=== PATIENT | female | born 1995 | race Caucasian/White ===

== ENCOUNTER → 2019-03-16 14:20 | Observation (INO) ==
[2019-03-16 12:44] LABS: Basophils # 0.1 K/mcL (0.0-0.2); Basophils % 0.6 %; Eosinophils # 0.1 K/mcL (0.0-0.6); Eosinophils % 0.5 %; Hematocrit 35.4 % (35.3-44.9); Hemoglobin 12.5 g/dL (11.5-15.4); Immature Granulocytes % 4.3 % (0-4); Lymphocytes # 1.6 K/mcL (0.6-4.6); Lymphocytes % 12.5 %; Mean Corpuscular HGB Conc 35.3 g/dL (31.6-35.5); Mean Corpuscular Hemoglobin 30.8 pg (28.0-33.3); Mean Corpuscular Volume 87.2 fL (83.0-100.0); Mean Platelet Volume 10.7 fL (9.4-12.4); Monocytes # 0.8 K/mcL (0.0-1.3); Monocytes % 6.4 %; Neutrophils # 9.4 K/mcL (1.6-8.9); Platelet Count 233 K/mcL (140-400); Red Blood Count 4.06 M/mcL (3.82-4.97); Red Cell Distribution Width 12.1 % (11.5-14.5); Segmented Neutrophils % 75.7 %; White Blood Count 12.4 K/mcL (4.3-11.1)
[2019-03-16 13:00] LABS: Alanine Aminotransferase 9 Units/L (7-52); Aspartate Amino Transferase 12 Units/L (13-39); BUN/Creatinine Ratio 12 (6-26); Blood Urea Nitrogen 6 mg/dL (6-20); Lactate Dehydrogenase 137 Units/L (140-271); Uric Acid 2.8 mg/dL (2.3-7.6); eGFR For African Americans > 60 (> 60); eGFR For Non-African Americans > 60 (> 60)
[2019-03-16 13:34] LABS: Amphetamine Screen,Urine Negative ng/mL (Cutoff=1000); Barbiturate Screen,Urine Negative ng/mL (Cutoff=200); Benzodiazepines Screen,Urine Negative ng/mL (Cutoff=200); Cannabinoid Screen,Urine Negative ng/mL (Cutoff = 50); Cocaine Screen,Urine Negative ng/mL (Cutoff= 300); Opiate Screen,Urine Negative ng/mL (Cutoff=300); Phencyclidine Screen,Urine Negative ng/mL (Cutoff=25)
[2019-03-16 14:45] LABS: Protein/Creatinine Ratio,Urine 0.33 mg/mg (0.00-0.20)
== END | disposition home or self-care (01) ==
LOC: 1NENULAB
PROVIDERS: ADMIT Obstetrics & Gynecology; ATTEND Obstetrics & Gynecology

== ENCOUNTER 2019-06-02 09:27 | Inpatient (IN) ==
[2019-06-02] MEDS ORDERED: *HR* Nalbuphine 10 MG/ML AMPUL IVP PRN (09:58)
[2019-06-02] MEDS ORDERED: Ondansetron 4 MG/2 ML VIAL IVP PRN (09:58)
[2019-06-02] MEDS ORDERED: Naloxone 0.4 MG/ML INJ IVP PRN (09:58)
[2019-06-02] MEDS ORDERED: Famotidine 20 MG/2 ML VIAL IVP PRN (09:58)
[2019-06-02] MEDS ORDERED: Metoclopramide 10 MG/2 ML VIAL IVP PRN (09:58)
[2019-06-02 10:23] LABS: Basophils % 0.3 %; Eosinophils # 0.1 K/mcL (0.0-0.6); Eosinophils % 0.6 %; Hemoglobin 11.3 g/dL (11.5-15.4); Immature Granulocytes % 2.2 % (0-4); Lymphocytes # 1.3 K/mcL (0.6-4.6); Lymphocytes % 12.5 %; Mean Corpuscular HGB Conc 33.2 g/dL (31.6-35.5); Mean Corpuscular Hemoglobin 28.2 pg (28.0-33.3); Mean Corpuscular Volume 84.8 fL (83.0-100.0); Mean Platelet Volume 11.2 fL (9.4-12.4); Monocytes # 0.8 K/mcL (0.0-1.3); Monocytes % 7.4 %; Neutrophils # 7.9 K/mcL (1.6-8.9); Platelet Count 193 K/mcL (140-400); Red Blood Count 4.01 M/mcL (3.82-4.97); Red Cell Distribution Width 12.9 % (11.5-14.5); White Blood Count 10.3 K/mcL (4.3-11.1)
[2019-06-02 10:31] LABS: Amphetamine Screen,Urine Negative ng/mL (Cutoff=1000); Barbiturate Screen,Urine Negative ng/mL (Cutoff=200); Benzodiazepines Screen,Urine Negative ng/mL (Cutoff=200); Cannabinoid Screen,Urine Negative ng/mL (Cutoff = 50); Cocaine Screen,Urine Negative ng/mL (Cutoff= 300); Opiate Screen,Urine Negative ng/mL (Cutoff=300); Phencyclidine Screen,Urine Negative ng/mL (Cutoff=25)
[2019-06-02] MEDS: Oxytocin 20 units/ LR 1000 mL 20 UNIT/1,000 ML BAG IVC SCH (11:07)
[2019-06-02] MEDS: Ringers Solution, Lactated 1,000 ML IVC SCH ×2 (11:07→15:16)
[2019-06-02] MEDS ORDERED: *HR* FentaNYL (PF) 100 MCG/2 ML VIAL ONE ×3 (15:05→23:26)
[2019-06-02] MEDS ORDERED: Bupivacaine-MPF 0.25% 10 ML VIAL ONE ×3 (15:05→23:26)
[2019-06-02] MEDS: Epidural Premix (fent/bupiv) 110 ML EP SCH ×2 (15:16→22:52)
[2019-06-02] MEDS ORDERED: D5% in Lactated Ringers 1,000 ML IVC SCH (21:30)
[2019-06-03] MEDS ORDERED: Lidocaine/EPI 1:200k 2% PF 20 ML VIAL ONE ×2 (03:14→19:02)
[2019-06-03] MEDS: Epidural Premix (fent/bupiv) 110 ML EP SCH (05:19)
[2019-06-03] MEDS ORDERED: *HR* Ropivacaine/PF 0.5% 20 ML VIAL ONE (07:51)
[2019-06-03] MEDS ORDERED: Acetaminophen 325 MG TABLET PO ONE (10:05)
[2019-06-03] MEDS: Oxytocin 20 units/ LR 1000 mL 20 UNIT/1,000 ML BAG IVC SCH (13:56)
[2019-06-03] MEDS: Ringers Solution, Lactated 1,000 ML IVC SCH (13:56)
[2019-06-03] MEDS ORDERED: Penicillin G Potassium 5,000,000 UNIT in 0.9 % Sodium Chloride Mini Bag 100 ML IVPB ONE (16:44)
[2019-06-03] MEDS ORDERED: Lidocaine 1% 20 ML MDV INFILT ONE (18:58)
[2019-06-03] MEDS ORDERED: Lidocaine 1% 20 ML MDV ONE (19:00)
[2019-06-03] MEDS ORDERED: Penicillin G Potassium 2,500,000 UNIT in 0.9 % Sodium Chloride 100 ML IVPB SCH (21:00)
[2019-06-03] MEDS ORDERED: Lanolin 7 G OINT...G. TP PRN (22:36)
[2019-06-03] MEDS ORDERED: Acetaminophen 325 MG TABLET PO PRN (22:36)
[2019-06-03] MEDS ORDERED: Benzocaine/Menthol 56 GM AEROSOL SPRAY TP PRN (22:36)
[2019-06-03] MEDS ORDERED: Ibuprofen 600 MG TABLET PO PRN (22:36)
[2019-06-03] MEDS ORDERED: Sennosides 8.6 MG TABLET PO PRN (22:36)
[2019-06-03] MEDS ORDERED: Oxytocin 20 units/ LR 1000 mL 20 UNIT/1,000 ML BAG IVC SCH (22:36)
[2019-06-04] MEDS: *HR* HYDROcodone/Acet 5/325 mg TABLET PO PRN ×2 (00:56→07:44)
[2019-06-04 04:52] LABS: Basophils % 0.2 %; Eosinophils # 0.1 K/mcL (0.0-0.6); Eosinophils % 0.4 %; Hematocrit 25.8 % (35.3-44.9); Immature Granulocytes % 1.4 % (0-4); Lymphocytes # 1.5 K/mcL (0.6-4.6); Lymphocytes % 9.5 %; Mean Corpuscular HGB Conc 34.1 g/dL (31.6-35.5); Mean Corpuscular Volume 82.2 fL (83.0-100.0); Mean Platelet Volume 11.1 fL (9.4-12.4); Monocytes # 1.2 K/mcL (0.0-1.3); Monocytes % 7.8 %; Neutrophils # 12.7 K/mcL (1.6-8.9); Platelet Count 159 K/mcL (140-400); Red Blood Count 3.14 M/mcL (3.82-4.97); Red Cell Distribution Width 13.1 % (11.5-14.5); Segmented Neutrophils % 80.7 %; White Blood Count 15.7 K/mcL (4.3-11.1)
[2019-06-04 04:53] LABS: Hemoglobin 8.8 g/dL (11.5-15.4)
[2019-06-04 08:07] VITALS: BP 114/77
[2019-06-04] MEDS ORDERED: Prenatal Vit/FA 1 EACH TABLET PO SCH (09:00)
[2019-06-04] MEDS ORDERED: miSOPROStoL 100 MCG TABLET PO ONE (11:29)
[2019-06-04] MEDS ORDERED: Methylergonovine 0.2 MG/ML AMPUL IM ONE (11:29)
== END 2019-06-04 11:30 | disposition home or self-care (01) | DRG 542 ==
LOC: 1NENULAB 09:27 → 1NENUOBS 06-03 22:36
PROVIDERS: ADMIT Registered Nurse; ATTEND Registered Nurse

== ENCOUNTER 2020-12-31 22:04 | Inpatient (IN) ==
[2020-12-31] MEDS ORDERED: Famotidine 20 MG/2 ML VIAL IVP PRN (22:36)
[2020-12-31] MEDS ORDERED: Metoclopramide 10 MG/2 ML VIAL IVP PRN (22:36)
[2020-12-31] MEDS ORDERED: Azithromycin 500 MG in 0.9 % Sodium Chloride 250 ML IVPB PRN (22:36)
[2020-12-31] MEDS ORDERED: Ondansetron 4 MG/2 ML VIAL IVP PRN (22:36)
[2020-12-31] MEDS ORDERED: Lidocaine 1% 20 ML MDV INFILT PRN (22:36)
[2020-12-31] MEDS ORDERED: *HR* Nalbuphine 10 MG/ML AMPUL IV PRN (22:36)
[2020-12-31] MEDS ORDERED: Naloxone 0.4 MG/ML INJ IVP PRN (22:36)
[2020-12-31] MEDS ORDERED: Oxytocin 20 units/ LR 1000 mL 20 UNIT/1,000 ML BAG IVC SCH (23:45)
[2021-01-01 00:02] LABS: Basophils # 0.1 K/mcL (0.0-0.2); Basophils % 0.4 %; Eosinophils # 0.1 K/mcL (0.0-0.6); Eosinophils % 0.5 %; Hematocrit 37.5 % (35.3-44.9); Hemoglobin 12.7 g/dL (11.5-15.4); Lymphocytes # 2.2 K/mcL (0.6-4.6); Lymphocytes % 19.4 %; Mean Corpuscular HGB Conc 33.9 g/dL (31.6-35.5); Mean Corpuscular Hemoglobin 27.8 pg (28.0-33.3); Mean Corpuscular Volume 82.1 fL (83.0-100.0); Monocytes # 0.7 K/mcL (0.0-1.3); Monocytes % 5.9 %; Neutrophils # 8.4 K/mcL (1.6-8.9); Platelet Count 198 K/mcL (140-400); Red Blood Count 4.57 M/mcL (3.82-4.97); Red Cell Distribution Width 13.2 % (11.5-14.5); Segmented Neutrophils % 72.8 %; White Blood Count 11.6 K/mcL (4.3-11.1)
[2021-01-01 00:08] LABS: Amphetamine Screen,Urine Negative ng/mL (Cutoff=1000); Barbiturate Screen,Urine Negative ng/mL (Cutoff=200); Benzodiazepines Screen,Urine Negative ng/mL (Cutoff=200); Cannabinoid Screen,Urine Negative ng/mL (Cutoff = 50); Cocaine Screen,Urine Negative ng/mL (Cutoff= 300); Opiate Screen,Urine Negative ng/mL (Cutoff=300); Phencyclidine Screen,Urine Negative ng/mL (Cutoff=25)
[2021-01-01] MEDS ORDERED: Ringers Solution, Lactated 1,000 ML IVC SCH (00:15)
[2021-01-01 00:33] LABS: Influenza A PCR Negative (Negative); Influenza B PCR Negative (Negative); Resp. Syncytial Virus PCR Negative (Negative); SARS-CoV-2 by PCR (In House) Negative (Negative)
[2021-01-01] MEDS ORDERED: EPHEDrine 50 MG/ML VIAL IVP PRN (01:16)
[2021-01-01] MEDS ORDERED: *HR* FentaNYL (PF) 100 MCG/2 ML VIAL EP ONE (01:16)
[2021-01-01] MEDS ORDERED: Ropivacaine/PF 0.2% 20 ML VIAL EP ONE (01:16)
[2021-01-01] MEDS ORDERED: Ropivacaine/PF 0.2% 20 ML VIAL ONE (01:18)
[2021-01-01] MEDS ORDERED: *HR* FentaNYL (PF) 100 MCG/2 ML VIAL ONE ×2 (01:18→06:42)
[2021-01-01] MEDS ORDERED: Epidural Premix (fent/bupiv) 110 ML EP SCH (01:30)
[2021-01-01] MEDS ORDERED: Lanolin 7 G OINT...G. TP PRN (11:50)
[2021-01-01] MEDS ORDERED: Oxytocin 20 units/ LR 1000 mL 20 UNIT/1,000 ML BAG IVC SCH (11:50)
[2021-01-01] MEDS ORDERED: *HR* HYDROcodone/Acet 5/325 mg TABLET PO PRN (11:50)
[2021-01-01] MEDS ORDERED: Benzocaine/Menthol 56 GM AEROSOL SPRAY TP PRN (11:50)
[2021-01-01] MEDS: Ibuprofen 600 MG TABLET PO PRN (16:16)
[2021-01-01] MEDS: Acetaminophen 325 MG TABLET PO PRN (18:36)
[2021-01-02] MEDS: Acetaminophen 325 MG TABLET PO PRN ×2 (02:08→08:23)
[2021-01-02] MEDS: Ibuprofen 600 MG TABLET PO PRN ×2 (02:09→08:23)
[2021-01-02 05:08] LABS: Basophils # 0.1 K/mcL (0.0-0.2); Basophils % 0.5 %; Eosinophils # 0.1 K/mcL (0.0-0.6); Eosinophils % 1.1 %; Hematocrit 29.4 % (35.3-44.9); Immature Granulocytes % 0.8 % (0-4); Lymphocytes # 2.7 K/mcL (0.6-4.6); Lymphocytes % 25.7 %; Mean Corpuscular Hemoglobin 28.7 pg (28.0-33.3); Mean Corpuscular Volume 84.2 fL (83.0-100.0); Mean Platelet Volume 11.4 fL (9.4-12.4); Monocytes # 0.8 K/mcL (0.0-1.3); Monocytes % 7.5 %; Neutrophils # 6.8 K/mcL (1.6-8.9); Platelet Count 161 K/mcL (140-400); Red Blood Count 3.49 M/mcL (3.82-4.97); Red Cell Distribution Width 13.4 % (11.5-14.5); Segmented Neutrophils % 64.4 %; White Blood Count 10.6 K/mcL (4.3-11.1)
[2021-01-02 05:40] VITALS: TEMP 97.5; O2SAT 99
[2021-01-02 08:07] VITALS: BP 106/64; PULSE 53
[2021-01-02] MEDS ORDERED: Prenatal Vit/FA 1 EACH TABLET PO SCH (09:00)
== END 2021-01-02 12:25 | disposition home or self-care (01) | DRG 560 ==
LOC: 1NENULAB 22:04 → 1NENUOBS 01-01 12:17
PROVIDERS: ADMIT Registered Nurse; ATTEND Registered Nurse